=== PATIENT | male | born 1975 | race Caucasian/White ===

== ENCOUNTER 2020-05-11 20:00 | Outpatient (CLI) | payer OTHER, SELFPAY | END 2020-05-11 20:01 | disposition home or self-care (01) | LOC: SLEEP 05-14 08:01 | PROVIDERS: Family Provider Family Medicine; PCP Family Medicine; Visit Provider Nurse Practitioner | DX: G47.30 Sleep apnea, unspecified (principal) | CPT/HCPCS: 95811 ==

== ENCOUNTER → 2021-08-07 08:55 | Outpatient (BNVA) | payer OTHER, SELFPAY | PROVIDERS: Family Provider Family Medicine; PCP Family Medicine; Visit Provider Internal Medicine | DX: E11.65 Type 2 diabetes mellitus with hyperglycemia (principal); E11.59 Type 2 diabetes mellitus with other circulatory complications; E78.5 Hyperlipidemia, unspecified; I25.810 Atherosclerosis of coronary artery bypass graft(s) without angina pectoris; Z86.73 Personal history of transient ischemic attack (TIA), and cerebral infarction without residual deficits; Z79.4 Long term (current) use of insulin | CPT/HCPCS: 99204 ==

== ENCOUNTER 2021-08-27 09:27 | Outpatient (RCR) | payer OTHER, SELFPAY | END 2021-08-27 23:59 | disposition home or self-care (01) | LOC: SOT 09:27 | PROVIDERS: Family Provider Family Medicine; PCP Family Medicine; Referring Provider Emergency Medicine Emergency Medical Services; Visit Provider Emergency Medicine Emergency Medical Services | DX: I69.359 Hemiplegia and hemiparesis following cerebral infarction affecting unspecified side (principal) | CPT/HCPCS: 97166; L3923 ==

== ENCOUNTER 2021-08-28 06:00 | Outpatient (RCR) | payer OTHER, SELFPAY | END 2021-09-27 23:59 | disposition home or self-care (01) | LOC: SOT 06:00 | PROVIDERS: Family Provider Family Medicine; PCP Family Medicine; Referring Provider Emergency Medicine Emergency Medical Services; Visit Provider Emergency Medicine Emergency Medical Services | DX: I69.359 Hemiplegia and hemiparesis following cerebral infarction affecting unspecified side (principal) | CPT/HCPCS: 97110; 97140; 97168 ==

== ENCOUNTER → 2021-10-08 11:07 | Outpatient (BNVA) | payer OTHER, SELFPAY | PROVIDERS: Family Provider Family Medicine; PCP Family Medicine; Visit Provider Internal Medicine | DX: E78.5 Hyperlipidemia, unspecified (principal); E11.59 Type 2 diabetes mellitus with other circulatory complications; E11.65 Type 2 diabetes mellitus with hyperglycemia; I25.810 Atherosclerosis of coronary artery bypass graft(s) without angina pectoris; Z86.73 Personal history of transient ischemic attack (TIA), and cerebral infarction without residual deficits; Z79.4 Long term (current) use of insulin | CPT/HCPCS: 99214 ==

== ENCOUNTER 2022-01-15 14:46 | Outpatient (CLI) | payer OTHER, SELFPAY ==
[2022-01-15 16:06] LABS: Free T4 Free Thyroxine 1.02 ng/dL (0.82-1.77); Testosterone Total 196.6 ng/dL (249-836); Thyroid Stimulating Hormone 2.16 uIU/mL (0.27-4.20)
[2022-01-15 18:54] LABS: Follicle Stimulating Hormone 1.9 mIU/mL (1.5-12.4); Luteinizing Hormone 3.1 mIU/mL (1.7-8.6); Prolactin 6.85 ng/mL (4.0-15.2)
[2022-01-17 15:19] LABS: Estmated Average Glucose 189; Hemoglobin A1C 8.2 % (4.0-6.0)
== END 2022-01-15 14:47 | disposition home or self-care (01) ==
LOC: RAD 14:49
PROVIDERS: Family Provider Family Medicine; PCP Family Medicine; Visit Provider Internal Medicine
DX: E78.5 Hyperlipidemia, unspecified (principal); E11.65 Type 2 diabetes mellitus with hyperglycemia; E11.59 Type 2 diabetes mellitus with other circulatory complications
CPT/HCPCS: 36415; 82533; 83001; 83002; 83036; 84146; 84403; 84439; 84443

== ENCOUNTER → 2022-01-21 14:28 | Outpatient (BNVA) | payer OTHER, SELFPAY | PROVIDERS: Family Provider Family Medicine; PCP Family Medicine; Visit Provider Internal Medicine | DX: E11.59 Type 2 diabetes mellitus with other circulatory complications (principal); E11.65 Type 2 diabetes mellitus with hyperglycemia; E78.5 Hyperlipidemia, unspecified; R79.89 Other specified abnormal findings of blood chemistry; Z86.73 Personal history of transient ischemic attack (TIA), and cerebral infarction without residual deficits; I25.810 Atherosclerosis of coronary artery bypass graft(s) without angina pectoris; Z79.4 Long term (current) use of insulin | CPT/HCPCS: 99214 ==

== ENCOUNTER 2022-03-05 12:54 | Emergency (ER) | payer OTHER, SELFPAY ==
--- NOTE | 2022-03-05 13:17 | XR_ITS ---
WS: [id number] Exam: XR ribs LT mn 3V w CXR1V [id number] Date/Time of Exam: 03/05/2022 1:19 PM Reason For Exam: rib pain No sign of acute left rib fracture. The lungs are fully expanded and clear. Normal cardiomediastinal silhouette. Signs of previous median sternotomy. XR/XR ribs LT mn 3V w CXR1V [id number] IMPRESSION: 1. No acute left rib fracture or pneumothorax. No acute cardiopulmonary finding .
[2022-03-05 15:31] VITALS: BP 132/80; PULSE 86; RESP 16; TEMP 36.8; O2SAT 96; BMI 45.3
--- NOTE | 2022-03-05 16:19 | CTR_ITS ---
PROCEDURE INFORMATION: Exam: CT Abdomen And Pelvis Without Contrast Exam date and time: 03/05/2022 6:31 PM Age: 46 years old Clinical indication: Injury or trauma; Fall; Blunt; Lower; Injury details: Left flank--; Patient HX: Patient fell on wooden walking cane 3 weeks ago--- pain has returned without new injury; Additional info: L posterior back/flank pains TECHNIQUE: Imaging protocol: Computed tomography of the abdomen and pelvis without contrast. Radiation optimization: All CT scans at this facility use at least one of these dose optimization techniques: automated exposure control; mA and/or kV adjustment per patient size (includes targeted exams where dose is matched to clinical indication); or iterative reconstruction. COMPARISON: CR XR ribs LT mn 3V w CXR1V [id number] 03/05/2022 1:56 PM RADIATION DOSE METRICS: Total DLP (mGy-cm): 2087.05 FINDINGS: Liver: Hepatic steatosis. Gallbladder and bile ducts: Minimal biliary sludge suspected. Pancreas: Normal. No ductal dilation. Spleen: Normal. No splenomegaly. Adrenal glands: Normal. No mass. Kidneys and ureters: Normal. No hydronephrosis. Stomach and bowel: Diverticulosis without diverticulitis. Appendix: No evidence of appendicitis. Intraperitoneal space: Unremarkable. No free air. No significant fluid collection. Vasculature: Unremarkable. No abdominal aortic aneurysm. Lymph nodes: Unremarkable. No enlarged lymph nodes. Urinary bladder: Unremarkable as visualized. Reproductive: Unremarkable as visualized. Bones/joints: Left 11th posterior rib mildly displaced fracture Soft tissues: Unremarkable. CT/CT abdomen pelvis wo con [id number] IMPRESSION: 1. Left 11th posterior rib mildly displaced fracture 2. Hepatic steatosis. 3. Diverticulosis without diverticulitis. 4. Minimal biliary sludge suspected.
--- NOTE | 2022-03-05 16:20 | ED_ITS ---
Documented by User: AYAKA Powers 03/06/22 07:16 HPI - General Adult General: Chief complaint: General Medical Stated complaint: Left side injury Time Seen by Provider: 03/05/22 15:58 Source: patient and family Mode of arrival: ambulatory Limitations: no limitations History of Present Illness: Patient is a 46-year-old male who presents to ED today with a complaint of left posterior rib/back pain. Patient tells me 4 to 6 weeks ago while ambulating with his cane he slipped and fell and states the cane handle struck him near his left flank and he has been having fairly significant discomfort since that time. Patient sometimes feels like he can get minimal relief with heat. He states he will have good days but then states with any form of minimal trauma such as coughing, sneezing, lifting, etc pain will immediately begin again. Patient states he is concerned due to the length of time from his initial injury and his lack of improvement. Onset (ago): week(s) Location: back Severity: moderate Severity scale (1-10): 7 Quality: sharp Pain Consistency: constant Relieving factors: other (heat) Exacerbating factors: movement Associated symptoms: Reports no associated symptoms; Deny chest pain, dyspnea, headache(s), malaise, nausea, rash or vomiting Review of Systems Const: Denies: fever(s), chills, body aches, fatigue or malaise Card: Denies: chest pain Resp: Denies: dyspnea, productive cough or chest congestion GI: Denies: abdominal pain, nausea, vomiting or diarrhea : Denies: dysuria or hematuria Musc: Denies: neck pain, extremity pain or joint pain Skin/Breast: Denies: rash Neuro: Denies: headache(s), numbness in extremities, weakness in extremities or sensory changes PFS ED PFSH: Medical History Ankle and/or foot joint stiffness Broken wrist Chronic low back pain Dysphagia Hearing deficit Isolated memory impairment Joint pain Left-sided weakness Muscular pain Nerve pain PFO (patent foramen ovale) Sciatic leg pain 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 Social History Smoking and tobacco status: never smoked Second hand smoke exposure: No Smoking risk assessment/counseling performed?: Yes Alcohol intake: current Alcohol intake frequency: few times a week Alcohol type: beer Desire information about alcohol rehabilitation?: No Counseling given: No Desire information about substance/drug rehabilitation?: No Counseling given: No Adopted: No Caregiver/support person: Yes Lives independently: Yes Household members: spouse and children Housing: House Marital status: Number of children: 6 Highest education level completed: Associate Degree: Occupational, Technical, Vocational Program service: Yes Current occupational status: retired and disabled History of recent travel: No Sexually active: Yes Current gender identity: Male Agree to transfusion: Yes Physical Exam Const: COMMON NORMALS: no acute distress, patient oriented x3, no limitations and alert GENERAL APPEARANCE: cooperative NUTRITIONAL APPEARANCE: obese morbidly obese ORIENTATION/CONSCIOUSNESS: Yes awake, Yes oriented to person, Yes oriented to place and Yes oriented to time HENMT: COMMON NORMALS: normocephalic and atraumatic HEAD & SCALP: normal to inspection, normocephalic and atraumatic Chest: COMMONS NORMALS: normal inspection of the chest and normal palpation of entire chest wall Resp: COMMON NORMALS: normal respiratory effort and clear to auscultation bilaterally AUSCULTATION: clear to auscultation bilaterally Cardio: COMMON NORMALS: regular rate and regular rhythm RATE: regular rate RHYTHM: regular rhythm GI: COMMON NORMALS: Normal to inspection, nondistended, normoactive bowel sounds present, Soft to palpation and non-tender PALPATION: Yes Soft to palpation OTHER: limited secondary to body habitus Back/Pelvis: COMMON NORMALS: thoracic and lumbar spine normal to inspection, no thoracic nor lumbar tenderness and thoraco-lumbar ROM normal BACK IMAGE (MALE): 1. TTP Extremity: COMMON NORMALS: normal to inspection GENERAL: Yes normal exam except as noted Neuro: LIO COMA SCALE: document GCS findings [place] coma scale eye opening: Spontaneous Lio coma scale verbal response: Orientated Lio coma scale motor response: Obey commands [place] coma scale total score: 15 COMMON NORMALS: patient oriented x3, moves all extremities, no focal motor deficits and no sensory deficits noted SENSORIUM/ORIENTATION: Yes alert, Yes oriented to person, Yes oriented to place and Yes oriented to time Skin: COMMON NORMALS: no rashes or lesions noted GENERAL SKIN EXAM: no rashes or lesions noted Course Vital Signs: Vital signs: Vital Signs Temperature 98.2 F 03/05/22 15:31 Pulse Rate 86 03/05/22 15:31 Respiratory Rate 16 03/05/22 15:31 Blood Pressure 132/80 03/05/22 15:31 Pulse Oximetry 96 03/05/22 15:31 MDM - General Adult Medical Decision Making Patient here with fairly significant left posterior back/rib pain following a fall 4 to 6 weeks ago with what sounds like minimal trauma (states the handle of his cane struck this area). Patient very concerned as pain does not seem to be improving much. His vital signs are stable. Initial left rib/CXR pain films ordered from triage are negative. Discussed with patient that I would be willing to do some basic labs and CT imaging as etiology could be unrelated to his fall 6 weeks ago. He is agreeable to this. Care transferred to Tyrell Navarro PA-C ending these results. Lab Data : 03/05/22 19:20 03/05/22 19:20 Radiology Impressions Ribs X-Ray 03/05/22 13:17 IMPRESSION: 1. No acute left rib fracture or pneumothorax. No acute cardiopulmonary finding. Abdomen/Pelvis CT 03/05/22 16:19 IMPRESSION: 1. Left 11th posterior rib mildly displaced fracture 2. Hepatic steatosis. 3. Diverticulosis without diverticulitis. 4. Minimal biliary sludge suspected. Laboratory Results WBC 10.2 10^3/uL (4.0-10.0) H 03/05/22 19:20 RBC 5.47 10^6/uL (4.1-5.3) H 03/05/22 19:20 Hgb 16.0 g/dL (11.7-16.6) 03/05/22 19:20 Hct 46.1 % (42.0-52.0) 03/05/22 19:20 MCV 84.3 fl (80-94) 03/05/22 19:20 MCH 29.3 pg (28.0-34.0) 03/05/22 19:20 MCHC 34.7 g/dL (30.0-36.0) 03/05/22 19:20 RDW 12.7 % (12.1-15.1) 03/05/22 19:20 Plt Count 217 10^3/cmm (130-400) 03/05/22 19:20 MPV 10.7 fL (7.4-10.4) H 03/05/22 19:20 Neut % (Auto) 63.4 % 03/05/22 19:20 Lymph % (Auto) 25.5 % 03/05/22 19:20 Grainger % (Auto) 9.6 % 03/05/22 19:20 Eos % (Auto) 0.8 % 03/05/22 19:20 Baso % (Auto) 0.3 % 03/05/22 19:20 Neut # (Auto) 6.44 10^3/uL (1.8-7.7) 03/05/22 19:20 Lymph # (Auto) 2.6 10^3/uL (0.8-4.8) 03/05/22 19:20 Grainger # (Auto) 1.0 10^3/uL (0.2-0.9) H 03/05/22 19:20 Eos # (Auto) 0.1 10^3/uL (0.0-0.8) 03/05/22 19:20 Baso # (Auto) 0.0 10^3/uL (0.0-0.1) 03/05/22 19:20 Nucleated RBC % (auto) 0 % 03/05/22 19:20 Nucleated RBCs # 0.0 /100WBC 03/05/22 19:20 Sodium 137 mmol/L (136-145) 03/05/22 19:20 Potassium 4.1 mmol/L (3.5-5.1) 03/05/22 19:20 Chloride 100 mmol/L (98-107) 03/05/22 19:20 Carbon Dioxide 26 mmol/L (22-29) 03/05/22 19:20 Anion Gap 15.1 (5-19) 03/05/22 19:20 BUN 13 mg/dL (6-20) 03/05/22 19:20 Creatinine 0.7 mg/dL (0.7-1.2) 03/05/22 19:20 GFR Calculation 121.4 mL/min (90-130) 03/05/22 19:20 Glucose 136 mg/dL (65-115) H 03/05/22 19:20 Calculated Osmolality 286 mOsm/kg (285-295) 03/05/22 19:20 Calcium 9.4 mg/dL (8.5-10.5) 03/05/22 19:20 Total Bilirubin 0.6 mg/dL (0.15-1.2) 03/05/22 19:20 AST 53 U/L (0-40) H 03/05/22 19:20 ALT 63 U/L (0-41) H 03/05/22 19:20 Alkaline Phosphatase 69 IU/L (40-130) 03/05/22 19:20 Total Protein 7.6 g/dL (6.6-8.7) 03/05/22 19:20 Albumin 4.5 g/dL (3.5-5.2) 03/05/22 19:20 Globulin 3.1 g/dL (1.3-4.6) 03/05/22 19:20 Urine Color Yellow (Yellow) 03/05/22 19:10 Urine Appearance Clear (CLEAR) 03/05/22 19:10 Urine pH 5 (5-7) 03/05/22 19:10 Ur Specific Tamms 1.025 (1.005-1.030) 03/05/22 19:10 Urine Protein Neg (Negative) 03/05/22 19:10 Urine Glucose (UA) 2+ (Normal) H 03/05/22 19:10 Urine Ketones 1+ (Negative) H 03/05/22 19:10 Urine Blood Neg (Negative) 03/05/22 19:10 Urine Nitrate Negative (Negative) 03/05/22 19:10 Urine Bilirubin Neg (Negative) 03/05/22 19:10 Urine Urobilinogen Norm mg/dL (Negative) 03/05/22 19:10 Ur Leukocyte Esterase Negative (Negative) 03/05/22 19:10 Discharge Plan Discharge Patient Disposition: Home Clinical Impression: Left rib fracture Qualifiers: Encounter type: initial encounter Rib fracture type: single rib Fracture type: closed Qualified Code(s): S22.32XA - Fracture of one rib, left side, initial encounter for closed fracture Condition: Stable Prescriptions: New cyclobenzaprine 10 mg tablet 10 mg PO BID PRN (Reason: muscle spasm) Qty: 20 0RF ibuprofen 800 mg tablet 800 mg PO Q8H PRN (Reason: pain) Qty: 30 0RF No Action omega-3 fatty acids [Fish Oil Concentrate] 1,000 mg capsule 1,000 mg PO BID 0RF aspirin 81 mg tablet,delayed release (DR/EC) 81 mg PO DAILY 0RF niacin 500 mg tablet 500 mg PO DAILY 0RF Lantus Solostar U-100 Insulin 100 unit/mL (3 mL) insulin pen 60 unit SUBCUT DAILY Qty: 15 3RF Repatha SureClick 140 mg/mL pen injector 140 mg SUBCUT .Every 2 weeks Qty: 2 3RF Rx Instructions: Inject 140 mg subcut every 2 weeks. Praluent Pen 75 mg/mL pen injector 75 mg SUBCUT Q14D Qty: 2 3RF Rx Instructions: inject into abdomen, thigh, or upper arm (deltoid muscle); rotate sites Discharge Orders: Discharge ED (Routine); Ordered 03/05/22 Ordered By: Tyrell Navarro Referrals: Surya Reese [Primary Care Provider] - Discharge Diet: Regular Discharge Activity: Increase activity as tolerated Patient Instructions: Rib Fracture (ED), Opioid Safety Activity Restrictions/Additional Instructions: Follow-up with medical provider as directed in the next 5 to 7 days reevaluation. Use incentive spirometer multiple times daily to help prevent pneumonia. Apply cold pack or heat on painful area of left rib to help with symptoms. Take medications as prescribed. Return to the ER or your medical provider if condition worsens. Please read and understand discharge instructions. Thank you for choosing [facility] for your healthcare needs today. Please realize this is an emergency room and that we are providing you with a medical screening exam and this may not be complete and all inclusive of all the testing and or work up that you may need to determine your ailment or severity of your illness. It is very important that you follow up as instructed or that you return to the Emergency Department should you have concerns or if your condition changes or worsens in any way. Sign Out Sign Out Data: Patient Sign Out occurred on 03/05/22 at 17:11. Patient's care was discussed, and care was transferred from to AYAKA Vang. Coding Level of Care Code ED Fur Vault Attendant for Chg Fwd Exam Comprehensive Documented by User: AYAKA Vang 03/09/22 17:00 HPI - General Adult General: Chief complaint: General Medical Stated complaint: Left side injury Time Seen by Provider: 03/05/22 15:58 History of Present Illness: Patient is a 46-year-old male comes to the ED with left side and rib pain. Patient uses a cane for ambulation and states that he fell onto his cane and says the cane hit his left side. Since then he has been having left side pain. Pain has continued to progress. Today he rates the pain a 7 out of 10. 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 Social History Smoking and tobacco status: never smoked Second hand smoke exposure: No Smoking risk assessment/counseling performed?: Yes Alcohol intake: current Alcohol intake frequency: few times a week Alcohol type: beer Desire information about alcohol rehabilitation?: No Counseling given: No Desire information about substance/drug rehabilitation?: No Counseling given: No Adopted: No Caregiver/support person: Yes Lives independently: Yes Household members: spouse and children Housing: House Marital status: Number of children: 6 Highest education level completed: Associate Degree: Occupational, Technical, Vocational Program service: Yes Current occupational status: retired and disabled History of recent travel: No Sexually active: Yes Current gender identity: Male Agree to transfusion: Yes Physical Exam Back/Pelvis: BACK IMAGE (MALE): 1. TTP Neuro: LIO COMA SCALE: document GCS findings Lio coma scale total score: 15 Course Vital Signs: Vital signs: Vital Signs Temperature 98.2 F 03/05/22 15:31 Pulse Rate 86 03/05/22 15:31 Respiratory Rate 16 03/05/22 15:31 Blood Pressure 132/80 03/05/22 15:31 Pulse Oximetry 96 03/05/22 15:[address] [facility] - General Adult Lab Data : 03/05/22 19:20 03/05/22 19:20 Radiology Impressions Ribs X-Ray 03/05/22 13:17 IMPRESSION: 1. No acute left rib fracture or pneumothorax. No acute cardiopulmonary finding. Abdomen/Pelvis CT 03/05/22 16:19 IMPRESSION: 1. Left 11th posterior rib mildly displaced fracture 2. Hepatic steatosis. 3. Diverticulosis without diverticulitis. 4. Minimal biliary sludge suspected. Laboratory Results WBC 10.2 10^3/uL (4.0-10.0) H 03/05/22 19:20 RBC 5.47 10^6/uL (4.1-5.3) H 03/05/22 19:20 Hgb 16.0 g/dL (11.7-16.6) 03/05/22 19:20 Hct 46.1 % (42.0-52.0) 03/05/22 19:20 MCV 84.3 fl (80-94) 03/05/22 19:20 MCH 29.3 pg (28.0-34.0) 03/05/22 19:20 MCHC 34.7 g/dL (30.0-36.0) 03/05/22 19:20 RDW 12.7 % (12.1-15.1) 03/05/22 19:20 Plt Count 217 10^3/cmm (130-400) 03/05/22 19:20 MPV 10.7 fL (7.4-10.4) H 03/05/22 19:20 Neut % (Auto) 63.4 % 03/05/22 19:20 Lymph % (Auto) 25.5 % 03/05/22 19:20 Grainger % (Auto) 9.6 % 03/05/22 19:20 Eos % (Auto) 0.8 % 03/05/22 19:20 Baso % (Auto) 0.3 % 03/05/22 19:20 Neut # (Auto) 6.44 10^3/uL (1.8-7.7) 03/05/22 19:20 Lymph # (Auto) 2.6 10^3/uL (0.8-4.8) 03/05/22 19:20 Grainger # (Auto) 1.0 10^3/uL (0.2-0.9) H 03/05/22 19:20 Eos # (Auto) 0.1 10^3/uL (0.0-0.8) 03/05/22 19:20 Baso # (Auto) 0.0 10^3/uL (0.0-0.1) 03/05/22 19:20 Nucleated RBC % (auto) 0 % 03/05/22 19:20 Nucleated RBCs # 0.0 /100WBC 03/05/22 19:20 Sodium 137 mmol/L (136-145) 03/05/22 19:20 Potassium 4.1 mmol/L (3.5-5.1) 03/05/22 19:20 Chloride 100 mmol/L (98-107) 03/05/22 19:20 Carbon Dioxide 26 mmol/L (22-29) 03/05/22 19:20 Anion Gap 15.1 (5-19) 03/05/22 19:20 BUN 13 mg/dL (6-20) 03/05/22 19:20 Creatinine 0.7 mg/dL (0.7-1.2) 03/05/22 19:20 GFR Calculation 121.4 mL/min (90-130) 03/05/22 19:20 Glucose 136 mg/dL (65-115) H 03/05/22 19:20 Calculated Osmolality 286 mOsm/kg (285-295) 03/05/22 19:20 Calcium 9.4 mg/dL (8.5-10.5) 03/05/22 19:20 Total Bilirubin 0.6 mg/dL (0.15-1.2) 03/05/22 19:20 AST 53 U/L (0-40) H 03/05/22 19:20 ALT 63 U/L (0-41) H 03/05/22 19:20 Alkaline Phosphatase 69 IU/L (40-130) 03/05/22 19:20 Total Protein 7.6 g/dL (6.6-8.7) 03/05/22 19:20 Albumin 4.5 g/dL (3.5-5.2) 03/05/22 19:20 Globulin 3.1 g/dL (1.3-4.6) 03/05/22 19:20 Urine Color Yellow (Yellow) 03/05/22 19:10 Urine Appearance Clear (CLEAR) 03/05/22 19:10 Urine pH 5 (5-7) 03/05/22 19:10 Ur Specific Tamms 1.025 (1.005-1.030) 03/05/22 19:10 Urine Protein Neg (Negative) 03/05/22 19:10 Urine Glucose (UA) 2+ (Normal) H 03/05/22 19:10 Urine Ketones 1+ (Negative) H 03/05/22 19:10 Urine Blood Neg (Negative) 03/05/22 19:10 Urine Nitrate Negative (Negative) 03/05/22 19:10 Urine Bilirubin Neg (Negative) 03/05/22 19:10 Urine Urobilinogen Norm mg/dL (Negative) 03/05/22 19:10 Ur Leukocyte Esterase Negative (Negative) 03/05/22 19:10 Discharge Plan Discharge Patient Disposition: Home Clinical Impression: Left rib fracture Qualifiers: Encounter type: initial encounter Rib fracture type: single rib Fracture type: closed Qualified Code(s): S22.32XA - Fracture of one rib, left side, initial encounter for closed fracture Condition: Stable Prescriptions: New cyclobenzaprine 10 mg tablet 10 mg PO BID PRN (Reason: muscle spasm) Qty: 20 0RF ibuprofen 800 mg tablet 800 mg PO Q8H PRN (Reason: pain) Qty: 30 0RF No Action omega-3 fatty acids [Fish Oil Concentrate] 1,000 mg capsule 1,000 mg PO BID 0RF aspirin 81 mg tablet,delayed release (DR/EC) 81 mg PO DAILY 0RF niacin 500 mg tablet 500 mg PO DAILY 0RF Lantus Solostar U-100 Insulin 100 unit/mL (3 mL) insulin pen 60 unit SUBCUT DAILY Qty: 15 3RF Repatha SureClick 140 mg/mL pen injector 140 mg SUBCUT .Every 2 weeks Qty: 2 3RF Rx Instructions: Inject 140 mg subcut every 2 weeks. Praluent Pen 75 mg/mL pen injector 75 mg SUBCUT Q14D Qty: 2 3RF Rx Instructions: inject into abdomen, thigh, or upper arm (deltoid muscle); rotate sites Discharge Orders: Discharge ED (Routine); Ordered 03/05/22 Ordered By: Tyrell Navarro Referrals: Surya Reese [Primary Care Provider] - Discharge Diet: Regular Discharge Activity: Increase activity as tolerated Patient Instructions: Rib Fracture (ED), Opioid Safety Activity Restrictions/Additional Instructions: Follow-up with medical provider as directed in the next 5 to 7 days reevaluation. Use incentive spirometer multiple times daily to help prevent pneumonia. Apply cold pack or heat on painful area of left rib to help with symptoms. Take medications as prescribed. Return to the ER or your medical provider if condition worsens. Please read and understand discharge instructions. Thank you for choosing [facility] for your healthcare needs today. Please realize this is an emergency room and that we are providing you with a medical screening exam and this may not be complete and all inclusive of all the testing and or work up that you may need to determine your ailment or severity of your illness. It is very important that you follow up as instructed or that you return to the Emergency Department should you have concerns or if your condition changes or worsens in any way. Sign Out Sign Out Data: Patient Sign Out occurred on 03/05/22 at 17:11. Patient's care was discussed, and care was transferred from to AYAKA Vang. Coding Level of Care Code ED Fur Vault Attendant for Teresa Fwd Exam Comprehensive
[2022-03-05] MEDS: ketorolac 60 mg/2 mL INJ IM (19:12)
[2022-03-05] MEDS: orphenadrine 30 mg/mL Inj 2 mL 60 MG IM (19:14)
[2022-03-05 19:25] LABS: Basophils % 0.3 %; Eosinophils # 0.1 10^3/uL (0.0-0.8); Eosinophils % 0.8 %; Hematocrit 46.1 % (42.0-52.0); Lymphocytes # 2.6 10^3/uL (0.8-4.8); Lymphocytes % 25.5 %; Mean Corpuscular HGB Conc 34.7 g/dL (30.0-36.0); Mean Corpuscular Hemoglobin 29.3 pg (28.0-34.0); Mean Corpuscular Volume 84.3 fl (80-94); Mean Platelet Volume 10.7 fL (7.4-10.4); Monocytes % 9.6 %; Neutrophils # 6.44 10^3/uL (1.8-7.7); Neutrophils % 63.4 %; Nucleated Red Blood Cells % 0 %; Platelet Count 217 10^3/cmm (130-400); Red Blood Count 5.47 10^6/uL (4.1-5.3); Red Cell Distribution Width 12.7 % (12.1-15.1); White Blood Count 10.2 10^3/uL (4.0-10.0)
[2022-03-05 19:33] LABS: Add Urine Microscopic? NO; Charge for UA Resulting for Rev
[2022-03-05 19:36] LABS: Bilirubin Urine Neg (Negative); Blood Urine Neg (Negative); Glucose Urine UA 2+ (Normal); Ketones Urine 1+ (Negative); Leukocyte Esterase Urine Negative (Negative); Nitrate Urine Negative (Negative); Protein Urine Neg (Negative); Specific Gravity, Urine 1.025 (1.005-1.030); Urine Appearance Clear (CLEAR); Urine Color Yellow (Yellow); Urobilinogen Urine Norm (Negative); pH Urine 5 (5-7)
[2022-03-05 19:47] LABS: Alanine Aminotransferase 63 U/L (0-41); Albumin Level 4.5 g/dL (3.5-5.2); Alkaline Phosphatase 69 IU/L (40-130); Blood Urea Nitrogen 13 mg/dL (6-20); Calcium 9.4 mg/dL (8.5-10.5); Carbon Dioxide 26 mmol/L (22-29); Chloride 100 mmol/L (98-107); Globulin 3.1 g/dL (1.3-4.6); Glomerular Filtration Rate 121.4 mL/min (90-130); Glucose 136 mg/dL (65-115); Osmolality Calculated 286 mOsm/kg (285-295); Sodium 137 mmol/L (136-145); Total Bilirubin 0.6 mg/dL (0.15-1.2); Total Protein 7.6 g/dL (6.6-8.7)
[2022-03-05 19:48] LABS: Anion Gap 15.1 (5-19); Aspartate Amino Transferase 53 U/L (0-40); Potassium 4.1 mmol/L (3.5-5.1)
== END 2022-03-05 20:19 | disposition home or self-care (01) ==
PROVIDERS: Physician Assistant; Emergency Provider Physician Assistant; PCP Family Medicine
DX: S22.32XA Fracture of one rib, left side, initial encounter for closed fracture (principal); W01.198A Fall on same level from slipping, tripping and stumbling with subsequent striking against other object, initial encounter
CPT/HCPCS: 36415; 71101; 74176; 80053; 81003; 85025; 96372; 99283; J1885; J2360

== ENCOUNTER 2022-04-09 09:17 | Outpatient (CLI) | payer OTHER, SELFPAY ==
[2022-04-09 10:25] LABS: Basophils % 0.4 %; Eosinophils # 0.2 10^3/uL (0.0-0.8); Eosinophils % 1.9 %; Hematocrit 43.7 % (42.0-52.0); Hemoglobin 15.1 g/dL (11.7-16.6); Lymphocytes # 3.1 10^3/uL (0.8-4.8); Lymphocytes % 38.7 %; Mean Corpuscular HGB Conc 34.6 g/dL (30.0-36.0); Mean Corpuscular Hemoglobin 29.5 pg (28.0-34.0); Mean Corpuscular Volume 85.4 fl (80-94); Mean Platelet Volume 10.9 fL (7.4-10.4); Monocytes % 12.7 %; Neutrophils # 3.66 10^3/uL (1.8-7.7); Neutrophils % 45.9 %; Nucleated Red Blood Cells % 0 %; Platelet Count 197 10^3/cmm (130-400); Red Blood Count 5.12 10^6/uL (4.1-5.3); Red Cell Distribution Width 12.6 % (12.1-15.1)
[2022-04-09 10:28] LABS: Lipase 24 U/L (13-60); Thyroid Stimulating Hormone 2.57 uIU/mL (0.27-4.20)
[2022-04-09 10:47] LABS: Creatinine Urine, Random 298 mg/dL (39-259); Microalbum Creatinine Ratio Ur 3 mg/dL (0-20); Microalbumin Random Urine 1 ug/dL (0-20)
[2022-04-09 10:56] LABS: Alanine Aminotransferase 58 U/L (0-41); Albumin Level 4.3 g/dL (3.5-5.2); Alkaline Phosphatase 68 IU/L (40-130); Aspartate Amino Transferase 32 U/L (0-40); Blood Urea Nitrogen 10 mg/dL (6-20); Calcium 9.2 mg/dL (8.5-10.5); Carbon Dioxide 28 mmol/L (22-29); Chloride 100 mmol/L (98-107); Cholesterol 219 mg/dL (0-200); Glomerular Filtration Rate 121.4 mL/min (90-130); Glucose 175 mg/dL (65-115); HDL Cholesterol 30 mg/dL (60-100); LDL Cholesterol Calculated 138 mg/dL (50-129); Osmolality Calculated 287 mOsm/kg (285-295); Sodium 137 mmol/L (136-145); Testosterone Total 206.3 ng/dL (249-836); Total Bilirubin 0.5 mg/dL (0.15-1.2); Total Protein 7.3 g/dL (6.6-8.7); Triglycerides 257 mg/dL (0-150)
[2022-04-09 11:04] LABS: Anion Gap 13.1 (5-19); Potassium 4.1 mmol/L (3.5-5.1)
[2022-04-09 11:22] LABS: Free T4 Free Thyroxine 0.94 ng/dL (0.82-1.77)
[2022-04-09 11:39] LABS: Estmated Average Glucose 214; Hemoglobin A1C 9.1 % (4.0-6.0)
[2022-04-09 11:52] LABS: 25 Hydroxy Vitamin D > 100 ng/mL (30-100)
[2022-04-16 18:39] LABS: Testosterone, Free 37.1 pg/mL (46.0-224.0)
== END 2022-04-09 09:18 | disposition home or self-care (01) ==
LOC: LAB 09:22
PROVIDERS: PCP Family Medicine; Visit Provider Internal Medicine
DX: E78.5 Hyperlipidemia, unspecified (principal); E11.59 Type 2 diabetes mellitus with other circulatory complications; R79.89 Other specified abnormal findings of blood chemistry
CPT/HCPCS: 36415; 80053; 80061; 82044; 82306; 83036; 83690; 84402; 84403; 84439; 84443; 85025

== ENCOUNTER → 2022-04-22 13:49 | Outpatient (BNVA) | payer OTHER, SELFPAY | PROVIDERS: PCP Family Medicine; Visit Provider Internal Medicine | DX: E11.65 Type 2 diabetes mellitus with hyperglycemia (principal); E11.59 Type 2 diabetes mellitus with other circulatory complications; E78.5 Hyperlipidemia, unspecified; R79.89 Other specified abnormal findings of blood chemistry; I25.810 Atherosclerosis of coronary artery bypass graft(s) without angina pectoris; G47.30 Sleep apnea, unspecified; Z86.73 Personal history of transient ischemic attack (TIA), and cerebral infarction without residual deficits; Z79.4 Long term (current) use of insulin | CPT/HCPCS: 99214 ==

== ENCOUNTER → 2022-10-14 10:21 | Outpatient (BNVA) | payer OTHER, SELFPAY | PROVIDERS: PCP Emergency Medicine Emergency Medical Services; Visit Provider Internal Medicine | DX: E11.65 Type 2 diabetes mellitus with hyperglycemia (principal); E11.59 Type 2 diabetes mellitus with other circulatory complications; E78.5 Hyperlipidemia, unspecified; R79.89 Other specified abnormal findings of blood chemistry; Z79.4 Long term (current) use of insulin | CPT/HCPCS: 99214 ==

== ENCOUNTER → 2023-01-12 13:00 | Outpatient (BNVA) | payer OTHER, SELFPAY | PROVIDERS: PCP Emergency Medicine Emergency Medical Services; Visit Provider Internal Medicine | DX: E11.65 Type 2 diabetes mellitus with hyperglycemia (principal); E11.59 Type 2 diabetes mellitus with other circulatory complications; E78.5 Hyperlipidemia, unspecified; R79.89 Other specified abnormal findings of blood chemistry; Z79.4 Long term (current) use of insulin | CPT/HCPCS: 99214 ==

== ENCOUNTER → 2023-03-11 13:06 | Outpatient (BNVA) | payer OTHER, SELFPAY | PROVIDERS: PCP Emergency Medicine Emergency Medical Services; Referring Provider Emergency Medicine Emergency Medical Services; Visit Provider Specialist | DX: G43.711 Chronic migraine without aura, intractable, with status migrainosus (principal); M54.50 Low back pain, unspecified; G89.29 Other chronic pain; Q21.12 Patent foramen ovale; I69.354 Hemiplegia and hemiparesis following cerebral infarction affecting left non-dominant side | CPT/HCPCS: 99204 ==

== ENCOUNTER 2023-04-07 12:56 | Outpatient (CLI) | payer OTHER, SELFPAY ==
--- NOTE | 2023-04-07 13:45 | USCV_ITS ---
Bert Danielle Age: 47 Gender: M : 1975 Exam Date: 04/07/2023 13:43 Ordering Phys: Josie Anaya MD Technologist: Suman Nugent [place] [facility] [place] asd BP: 104 / 70 HR: 79 Rhythm: Sinus Technical Quality: Adequate MEASUREMENTS (Male / Female) Normal Values 2D ECHO LVOT Diameter 2.1 cm LV Ejection Fraction MOD 2C 72.4 % LV Ejection Fraction 2C AL 71.9 % LA Diameter 3.9 cm LA Width 3.3 cm LA Height 3.9 cm RA Width 3.3 cm RA Height 3.9 cm Aorta at Sinotubular Diameter 2.0 cm IVC Diameter 1.8 cm M-MODE Aortic Annulus Diameter 3.0 cm LA Ao Ratio MM 1.3 MV E Point Septal Separation 0.7 cm DOPPLER AV Peak Velocity 139.0 cm/s LVOT Peak Velocity 103.0 cm/s AV Area Cont Eq vti 2.6 cm squared AV Area Cont Eq pk 2.7 cm squared MV Peak Velocity 85.0 cm/s MV Area PHT 3.9 cm squared Mitral E to A Ratio 1.2 MV E' Velocity 36.0 cm/s Mitral E to MV E' Ratio 6.5 Mitral E to LV E' Lateral Ratio 7.5 Mitral E to LV E' Septal Ratio 5.9 TR Peak Velocity 136.0 cm/s TR Peak Gradient 7.4 mmHg TR Mean Velocity 130.0 cm/s TR Mean Gradient 7.0 mmHg TR Velocity Time Integral 31.9 cm Right Atrial Pressure 3.0 mmHg Pulmonary Artery Systolic Pressu 10.4 mmHg PV Peak Velocity 123.3 cm/s RV Acceleration Time 0.1 s RV Ejection Time 0.3 s RV AcT/ET 0.5 FINDINGS Left Ventricle Normal left ventricular size and systolic function, EF 65 %. No gross wall motion abnormalities were noted. (Echo contrast - Optison was used to delineate the endocardium and to estimate the LV ejection fraction) Right Ventricle Right Atrium Left Atrium Mitral Valve No gross abnormalities were noted Aortic Valve Thickened aortic valve. Tricuspid Valve Pulmonic Valve Pericardium No pericardial effusion. Aorta IVC CONCLUSIONS Normal LV size and ejection fraction of 65% by method of disc No gross wall motion abnormalities noted No pericardial effusion Technically very difficult study even with echo contrast (Echo contrast - Optison was used to delineate the endocardium and to estimate the LV ejection fraction) Dr Cristina Bonilla MD [facility] (Electronically Signed) Final Date: 09 April 2023 23:09 S
[2023-04-07] MEDS: perflutren protein-a microsphr 0.22 mg/mL SDV 3 mL IV (14:28)
== END 2023-04-07 12:57 | disposition home or self-care (01) ==
LOC: RAD 13:01
PROVIDERS: PCP Emergency Medicine Emergency Medical Services; Visit Provider Specialist
DX: Q21.10 Atrial septal defect, unspecified (principal)
CPT/HCPCS: C8929; Q9956

== ENCOUNTER → 2023-05-05 15:09 | Outpatient (BNVA) | payer OTHER, SELFPAY | PROVIDERS: PCP Emergency Medicine Emergency Medical Services; Visit Provider Internal Medicine | DX: E11.65 Type 2 diabetes mellitus with hyperglycemia (principal); E11.59 Type 2 diabetes mellitus with other circulatory complications; E78.5 Hyperlipidemia, unspecified; R79.89 Other specified abnormal findings of blood chemistry; Z79.4 Long term (current) use of insulin | CPT/HCPCS: 99214 ==

== ENCOUNTER → 2023-06-23 14:01 | Outpatient (BNVA) | payer OTHER, SELFPAY | PROVIDERS: PCP Emergency Medicine Emergency Medical Services; Visit Provider Specialist | DX: G43.711 Chronic migraine without aura, intractable, with status migrainosus (principal) | CPT/HCPCS: 99213 ==

== ENCOUNTER 2023-08-31 12:54 | Outpatient (CLI) | payer OTHER, SELFPAY ==
[2023-08-31 13:47] LABS: Alanine Aminotransferase 65 U/L (0-41); Albumin Level 4.3 g/dL (3.5-5.2); Alkaline Phosphatase 68 U/L (40-130); Anion Gap 18.4 (5-19); Aspartate Amino Transferase 51 U/L (0-40); Blood Urea Nitrogen 9 mg/dL (6-20); Calcium 9.6 mg/dL (8.5-10.5); Carbon Dioxide 22 mmol/L (22-29); Chloride 100 mmol/L (98-107); Chol HDL Ratio 7.28 mg/dL (1.0-5.00); Cholesterol 211 mg/dL (0-200); Globulin 3.1 g/dL (1.3-4.6); Glomerular Filtration Rate 120.9 mL/min (90-130); Glucose 236 mg/dL (65-115); HDL Cholesterol 29 mg/dL (60-100); LDL Cholesterol Calculated 136 mg/dL (50-129); LDL HDL Ratio 4.69 RATIO (0.00-3.22); Osmolality Calculated 288 mOsm/kg (285-295); Potassium 4.4 mmol/L (3.5-5.1); Sodium 136 mmol/L (136-145); Total Bilirubin 0.5 mg/dL (0.15-1.2); Total Protein 7.4 g/dL (6.6-8.7); Triglycerides 231 mg/dL (0-150)
[2023-08-31 13:55] LABS: Estmated Average Glucose 220; Hemoglobin A1C 9.3 % (4.0-6.0)
[2023-08-31 14:02] LABS: 25 Hydroxy Vitamin D 45 ng/mL (30-100)
== END 2023-08-31 12:55 | disposition home or self-care (01) ==
LOC: LAB 12:55
PROVIDERS: PCP Emergency Medicine Emergency Medical Services; Visit Provider Internal Medicine
DX: E11.65 Type 2 diabetes mellitus with hyperglycemia (principal); E11.59 Type 2 diabetes mellitus with other circulatory complications; E78.5 Hyperlipidemia, unspecified; R79.89 Other specified abnormal findings of blood chemistry
CPT/HCPCS: 36415; 80053; 80061; 82306; 83036

== ENCOUNTER → 2023-09-04 09:46 | Outpatient (BNVA) | payer OTHER, SELFPAY | PROVIDERS: PCP Emergency Medicine Emergency Medical Services; Visit Provider Internal Medicine | DX: E11.59 Type 2 diabetes mellitus with other circulatory complications (principal); E11.65 Type 2 diabetes mellitus with hyperglycemia; E78.5 Hyperlipidemia, unspecified; R79.89 Other specified abnormal findings of blood chemistry; Z79.4 Long term (current) use of insulin; Z79.85 Long-term (current) use of injectable non-insulin antidiabetic drugs | CPT/HCPCS: 99214 ==

== ENCOUNTER → 2023-12-03 11:11 | Outpatient (BNVA) | payer OTHER, SELFPAY | PROVIDERS: PCP Emergency Medicine Emergency Medical Services; Visit Provider Internal Medicine | DX: E11.59 Type 2 diabetes mellitus with other circulatory complications (principal); E11.65 Type 2 diabetes mellitus with hyperglycemia; E78.5 Hyperlipidemia, unspecified; R79.89 Other specified abnormal findings of blood chemistry | CPT/HCPCS: 99214 ==

== ENCOUNTER → 2023-12-16 15:20 | Outpatient (BNVA) | payer OTHER, SELFPAY | PROVIDERS: PCP Emergency Medicine Emergency Medical Services; Visit Provider Specialist | DX: G43.711 Chronic migraine without aura, intractable, with status migrainosus (principal) | CPT/HCPCS: 99214 ==

== ENCOUNTER → 2024-03-16 12:32 | Outpatient (BNVA) | payer OTHER, SELFPAY | PROVIDERS: PCP Emergency Medicine Emergency Medical Services; Visit Provider Specialist | DX: G43.711 Chronic migraine without aura, intractable, with status migrainosus (principal) | CPT/HCPCS: 99213 ==

== ENCOUNTER → 2024-06-22 11:43 | Outpatient (BNVA) | payer OTHER, SELFPAY | PROVIDERS: PCP Emergency Medicine Emergency Medical Services; Visit Provider Specialist | DX: G43.711 Chronic migraine without aura, intractable, with status migrainosus (principal) | CPT/HCPCS: 99214 ==

== ENCOUNTER 2024-09-29 15:06 | Outpatient (CLI) | payer OTHER, SELFPAY ==
--- NOTE | 2024-09-29 15:17 | MR_ITS ---
WS: [id number] MRI BRAIN WITH AND WITHOUT CONTRAST HISTORY: HEADACHES COMPARISON: None available. TECHNIQUE: Multiplanar imaging performed through the brain with MultiHance 20 ml's IV. No infarct. Diffusion imaging is normal. Moderate sized LEFT cerebellar infarct with surrounding glio sis and volume loss. Smaller infarct in the superior RIGHT cerebellum. No supratentorial infarcts. Mi nimal volume loss and cerebral atrophy. No susceptibility artifacts or prior lacunar infarcts. Ventricles and extra-axial spaces are normal. Clivus and pituitary gland are normal. Visualized posterior fossa and brainstem are also normal. Postcontrast images are negative for masses or vascular malformations. Dural venous sinuses are normal. Paranasal sinuses: Well aerated with no significant disease. Mastoid air cells: Normal. Calvarium and scalp: Normal. MR/MR head wo/w con [id number] IMPRESSION: 1. No acute infarct. No hemorrhage or edema. 2. 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 Smaller infarct in the supe rior RIGHT cerebellum. 3. Minimal cerebral atrophy and volume loss. 4. No ventriculomegaly. 5. No enhancing mass or vascular malformation.
[2024-09-29] MEDS: gadobenate dimeglumine 20 mL vial IV (16:19)
== END 2024-09-29 15:07 | disposition home or self-care (01) ==
LOC: RAD 15:07
PROVIDERS: PCP Nurse Practitioner Family; Visit Provider Nurse Practitioner Family
DX: R51.9 Headache, unspecified (principal); I63.9 Cerebral infarction, unspecified
CPT/HCPCS: 70553